=== PATIENT | female | born 1985 | race Caucasian/White ===

== ENCOUNTER 2018-01-04 11:55 | Emergency (ER) | payer MEDICAID, OTHER ==
[~2018-01-04] VITALS: Ht 172.7 cm; Wt 120.2 kg
[2018-01-04 12:02] VITALS: BP 161/95
--- NOTE | 2018-01-04 12:03 | NUR ---
pt ambulated to bed 11
--- NOTE | 2018-01-04 12:05 | NUR ---
32/F BIB BOYFRIEND C/O RIGHT FLANK PAIN X3 DAYS ACCOMPANIED BY BURNING WITH URINATION. DENIES N/V/D; SKIN IS PINK/WARM/DRY; AAOX4 WITH EVEN AND STEADY GAIT; LUNGS CLEAR BL;PATIENT STATES PAIN OF 7/10 AT THIS TIME; PATIENT POSITIONED FOR COMFORT; HOB ELEVATED; BEDRAILS UP X2; BED DOWN. ER MD MADE AWARE OF PT STATUS.
--- NOTE | 2018-01-04 12:08 | NUR ---
Patient being evaluated by DR GILLIS at bedside.
[2018-01-04] MEDS ORDERED: ACETAMINOPHEN 325 MG TAB PO ONE (12:15)
[2018-01-04] MEDS ORDERED: DIAZEPAM 5 MG TAB PO ONE (12:15)
--- NOTE | 2018-01-04 12:34 | NUR ---
LAB AT BEDSIDE.
[2018-01-04 12:53] LABS: BASOPHILS # (AUTO) 0.1 K/uL (0.00-0.22); BASOPHILS % (AUTO) 1.3 % (0.0-2.0); EOSINOPHILS # (AUTO) 0.3 K/uL (0-0.4); HEMATOCRIT 44.4 % (36-48); HEMOGLOBIN 15.1 g/dL (12.0-16.0); LYMPHOCYTES # (AUTO) 1.9 K/uL (2.5-16.5); LYMPHOCYTES % (AUTO) 18.1 % (20.5-51.1); MEAN CORPUSCULAR HEMOGLOBIN 30 pg (27-31); MEAN CORPUSCULAR HGB CONC 34 g/dL (33-37); MEAN CORPUSCULAR VOLUME 89 fL (80-94); MONOCYTES # (AUTO) 0.9 K/uL (0.8-1.0); MONOCYTES % (AUTO) 8.5 % (1.7-9.3); NEUTROPHILS # (AUTO) 7.6 K/uL (1.8-7.7); NEUTROPHILS % (AUTO) 69.1 % (42.2-75.2); PLATELET COUNT (AUTO) 357 K/uL (140-450); RED CELL DISTRIBUTION WIDTH 12.1 % (11.6-13.7); WHITE BLOOD COUNT (AUTO) 10.8 K/uL (4.8-10.8)
[2018-01-04 12:55] LABS: APPEARANCE,URINE SL CLOUDY (CLEAR); BILIRUBIN,URINE NEGATIVE (NEGATIVE); BLOOD, URINE 1+ (NEGATIVE); COLOR,URINE YELLOW (YELLOW); LEUKOCYTE ESTERASE ,URINE 2+ (NEGATIVE); NITRITE, URINE NEGATIVE (NEGATIVE); PH,URINE 6.5 (5.0-9.0); UGLUCOSE NEGATIVE (NEGATIVE)
[2018-01-04 13:09] LABS: ANION GAP 13.7 (8-16); CARBON DIOXIDE 25.4 mmol/L (21-32); CREATININE 0.8 mg/dL (0.6-1.3); POTASSIUM 4.1 mmol/L (3.5-5.1)
[2018-01-04 13:10] LABS: RBC,URINE 3-10 (FEW) /HPF (0-5)
[2018-01-04 13:12] LABS: URINE AMORPHOUS URATE 2+ /HPF (None Seen)
[2018-01-04 13:22] LABS: ALBUMIN 3.6 g/dL (3.4-5.0); TOTAL BILIRUBIN 0.6 mg/dL (0.0-1.0)
[2018-01-04] MEDS ORDERED: HYDROcodone/APAP 5/325 MG 1 TAB TAB PO ONE (13:55)
[2018-01-04 14:12] VITALS: BP 136/87
--- NOTE | 2018-01-04 14:12 | NUR ---
Patient discharged with BP 136/87 DENIES HEADACHE AT THIS TIME. Written and verbal after care instructions given and explained. Patient alert, oriented and verbalized understanding of instructions. Ambulatory with steady gait. All questions addressed prior to discharge. ID band removed. Patient advised to follow up with PMD. Rx of NAPROSYN,CIPRO & TYLENOL given. Patient educated on indication of medication including possible reaction and side effects. Opportunity to ask questions provided and answered.
== END 2018-01-04 14:12 | disposition home or self-care (01) ==
LOC: MED 11:55
DX: N39.0 Urinary tract infection, site not specified (principal); Z88.6 Allergy status to analgesic agent
CPT/HCPCS: 36415; 76705; 80053; 81001; 81025; 83690; 85025; 87086; 99285; Q0092

== ENCOUNTER 2018-03-21 21:45 | Emergency (ER) | payer MEDICAID, OTHER ==
[~2018-03-21] VITALS: Ht 170.2 cm; Wt 121.2 kg
[2018-03-21 21:50] VITALS: BP 150/111
--- NOTE | 2018-03-21 21:50 | NUR ---
PATIENT AMB TO TRIAGED AND SENT TO ER LOBBY.
--- NOTE | 2018-03-21 22:39 | NUR ---
PT AMBULATED TO ER BED 03
--- NOTE | 2018-03-21 22:39 | NUR ---
PATIENT PRESENTS TO ED WITH BILAT LOWER ABDOMINAL PAIN RADIATING TO LEFT LOWER BACK 8/10X1 DAY. PT STATES N/V; SKIN IS PINK/WARM/DRY; AAOX4 WITH EVEN AND STEADY GAIT; LUNGS CLEAR BL; HR EVEN AND REGULAR; PT DENIES ANY FEVER, CP, SOB, OR COUGH AT THIS TIME; PATIENT STATES PAIN OF 0/10 AT THIS TIME; VSS; PATIENT POSITIONED FOR COMFORT; HOB ELEVATED; BEDRAILS UP X2; BED DOWN. ER MD MADE AWARE OF PT STATUS.
[2018-03-21] MEDS ORDERED: MORPHINE SULFATE 4 MG/ML SYR IM ONE (23:20)
[2018-03-21] MEDS ORDERED: ONDANSETRON 4 MG ODT PO ONE (23:20)
[2018-03-22 00:05] VITALS: BP 150/111
--- NOTE | 2018-03-22 00:05 | NUR ---
Patient discharged with v/s stable. Written and verbal after care instructions given and explained. Patient alert, oriented and verbalized understanding of instructions. Ambulatory with steady gait. All questions addressed prior to discharge. ID band removed. Patient advised to follow up with PMD. Rx of ZOFRAN, CIPRO, NORCO given. Patient educated on indication of medication including possible reaction and side effects. Opportunity to ask questions provided and answered.
== END 2018-03-22 00:05 | disposition home or self-care (01) ==
LOC: MED 21:45
DX: N39.0 Urinary tract infection, site not specified (principal); R11.0 Nausea; R10.30 Lower abdominal pain, unspecified; Z88.6 Allergy status to analgesic agent
CPT/HCPCS: 81002; 81025; 96372; 99283; J2270; S0119

== ENCOUNTER 2018-08-24 07:57 | Emergency (ER) | payer OTHER ==
[~2018-08-24] VITALS: Ht 170.2 cm; Wt 125.4 kg
[2018-08-24 08:05] VITALS: BP 170/79
--- NOTE | 2018-08-24 08:27 | NUR ---
PATIENT PRESENTS TO ED WITH ACCOMPANIED BY , C/O INTERMITTENT CRAMPING WITH HEAVY VAG BLEEDING 6-10 [place]IT[place]/DAY SATURATED PER PT. DENIES DIZZINESS OR SOB AT THIS TIME---NOT ON BIRTHCONTROL DENIES N/V/D; SKIN IS PINK/WARM/DRY; AAOX4 WITH EVEN AND STEADY GAIT; LUNGS CLEAR BL; HR EVEN AND REGULAR; PT DENIES ANY FEVER, CP, SOB, OR COUGH AT THIS TIME; PATIENT STATES PAIN OF 4/10 AT THIS TIME; VSS; PATIENT POSITIONED FOR COMFORT; HOB ELEVATED; BEDRAILS UP X2; BED DOWN. ER MD MADE AWARE OF PT STATUS.
--- NOTE | 2018-08-24 08:31 | NUR ---
UNABLE TO VOID AT THIS TIME---PROVIDED WITH WATER
--- NOTE | 2018-08-24 09:00 | NUR ---
ULTRASOUND AT BEDSIDE
[2018-08-24 09:42] LABS: BASOPHILS # (AUTO) 0.1 K/uL (0.00-0.22); BASOPHILS % (AUTO) 0.9 % (0.0-2.0); EOSINOPHILS # (AUTO) 0.3 K/uL (0-0.4); EOSINOPHILS % (AUTO) 2.7 % (0.0-4.0); HEMATOCRIT 45.7 % (36-48); HEMOGLOBIN 15.6 g/dL (12.0-16.0); LYMPHOCYTES # (AUTO) 2.1 K/uL (2.5-16.5); LYMPHOCYTES % (AUTO) 20.8 % (20.5-51.1); MEAN CORPUSCULAR HEMOGLOBIN 31 pg (27-31); MEAN CORPUSCULAR HGB CONC 34 g/dL (33-37); MEAN CORPUSCULAR VOLUME 89.5 fL (80-94); MONOCYTES # (AUTO) 0.7 K/uL (0.8-1.0); NEUTROPHILS # (AUTO) 6.9 K/uL (1.8-7.7); NEUTROPHILS % (AUTO) 68.6 % (42.2-75.2); PLATELET COUNT (AUTO) 329 K/uL (140-450); RED BLOOD CELL COUNT(AUTO) 5.11 MIL/uL (4.20-5.40); WHITE BLOOD COUNT (AUTO) 10.1 K/uL (4.8-10.8)
[2018-08-24 09:56] LABS: BARBITURATE, URINE NEG. ng/ml (NEG <=200); BENZODIAZEPINE, URINE NEG. ng/mL (NEG <=200); CANNABINOID, URINE POS. ng/mL (NEG <=50); OPIATE, URINE NEG. ng/mL (NEG <=2000)
[2018-08-24 10:06] LABS: APPEARANCE,URINE BLOODY (CLEAR); COLOR,URINE RED (YELLOW)
[2018-08-24 10:07] LABS: BILIRUBIN,URINE NEGATIVE (NEGATIVE); BLOOD, URINE 3+ (NEGATIVE); LEUKOCYTE ESTERASE ,URINE SMALL (NEGATIVE); NITRITE, URINE NEGATIVE (NEGATIVE); UGLUCOSE NEGATIVE (NEGATIVE)
[2018-08-24 10:07] LABS: PROTHROMBIN TIME 9.3 secs (10.8-13.4)
[2018-08-24 10:10] LABS: RBC,URINE >100 /HPF (0-5)
[2018-08-24 10:11] LABS: WBC,URINE 0-5 (RARE) /HPF (0-5)
[2018-08-24 10:30] LABS: COCAINE, URINE NEG ng/mL (NEG <=300); PHENCYCLIDINE SCREEN,URINE NEG ng/mL (NEG <=25)
--- NOTE | 2018-08-24 11:05 | NUR ---
Patient discharged with v/s stable. Written and verbal after care instructions given and explained. Patient alert, oriented and verbalized understanding of instructions. Ambulatory with steady gait. All questions addressed prior to discharge. ID band removed. Patient advised to follow up with PMD. Rx of TORADOL given. Patient educated on indication of medication including possible reaction and side effects. Opportunity to ask questions provided and answered.
[2018-08-24 11:06] VITALS: BP 149/81
== END 2018-08-24 11:05 | disposition home or self-care (01) ==
LOC: MED 07:57
DX: N83.201 Unspecified ovarian cyst, right side (principal); K21.9 Gastro-esophageal reflux disease without esophagitis; Z88.6 Allergy status to analgesic agent
CPT/HCPCS: 36415; 76830; 80305; 81001; 81025; 84702; 85025; 85610; 85730; 87086; 99285; Q0092

== ENCOUNTER 2019-05-22 16:54 | Emergency (ER) | payer MEDICAID, OTHER ==
[~2019-05-22] VITALS: Ht 170.2 cm; Wt 108.9 kg
[2019-05-22 17:00] VITALS: BP 118/64
[2019-05-22] MEDS ORDERED: NACL 0.9% 1,000 ML IV ONE (17:05)
--- NOTE | 2019-05-22 17:08 | NUR ---
PT C/O R LOWER ABD PAIN RADIATES TO R FLANK X1 DAY, REPORTS VOMITING. DENIES N/D; SKIN IS PINK/WARM/DRY; AWAKE, ALERT. LUNGS CLEAR BL; HR EVEN AND REGULAR; PT DENIES ANY FEVER, CP, SOB, OR COUGH AT THIS TIME; PATIENT STATES PAIN OF 10/10 AT THIS TIME; VSS; PATIENT POSITIONED FOR COMFORT; HOB ELEVATED; BEDRAILS UP X2; BED DOWN. ER MD MADE AWARE OF PT STATUS.
[2019-05-22] MEDS ORDERED: MORPHINE SULFATE 4 MG/ML SYR IVP ONE (17:50)
[2019-05-22 18:00] LABS: BASOPHILS # (AUTO) 0.1 K/uL (0.00-0.22); EOSINOPHILS # (AUTO) 0.3 K/uL (0-0.4); EOSINOPHILS % (AUTO) 1.8 % (0.0-4.0); HEMATOCRIT 46.7 % (36-48); HEMOGLOBIN 15.7 g/dL (12.0-16.0); LYMPHOCYTES # (AUTO) 2.5 K/uL (2.5-16.5); MEAN CORPUSCULAR HEMOGLOBIN 30 pg (27-31); MEAN CORPUSCULAR HGB CONC 34 g/dL (33-37); MEAN CORPUSCULAR VOLUME 89.4 fL (80-94); MONOCYTES # (AUTO) 0.8 K/uL (0.8-1.0); MONOCYTES % (AUTO) 5.6 % (1.7-9.3); NEUTROPHILS # (AUTO) 10.4 K/uL (1.8-7.7); NEUTROPHILS % (AUTO) 73.6 % (42.2-75.2); PLATELET COUNT (AUTO) 370 K/uL (140-450); RED BLOOD CELL COUNT(AUTO) 5.23 MIL/uL (4.20-5.40); WHITE BLOOD COUNT (AUTO) 14.2 K/uL (4.8-10.8)
[2019-05-22 18:13] LABS: ANION GAP 17.8 (8-16); CARBON DIOXIDE 23.8 mmol/L (21-32); POTASSIUM 3.6 mmol/L (3.5-5.1)
[2019-05-22 18:18] LABS: ALBUMIN 4.4 g/dL (3.4-5.0); TOTAL BILIRUBIN 0.5 mg/dL (0.0-1.0)
--- NOTE | 2019-05-22 18:30 | NUR ---
PT STATED PAIN RELIEVED.
--- NOTE | 2019-05-22 19:19 | NUR ---
RECEIVED REPORT FROM BARRETT OCHOA. TRANSFER OF CARE AT THIS TIME.
--- NOTE | 2019-05-22 19:28 | NUR ---
PT AWAKE, ALERT, ASKING TO USE RESTROOM. PT AMBULATES TO RR WITHOUT DIFFICULTY. DENIES PAIN AT THIS TIME.
[2019-05-22 20:37] LABS: APPEARANCE,URINE CLEAR (CLEAR); BILIRUBIN,URINE NEGATIVE (NEGATIVE); BLOOD, URINE 3+ (NEGATIVE); COLOR,URINE YELLOW (YELLOW); LEUKOCYTE ESTERASE ,URINE NEGATIVE (NEGATIVE); NITRITE, URINE NEGATIVE (NEGATIVE); UGLUCOSE NEGATIVE (NEGATIVE)
[2019-05-22 20:46] LABS: RBC,URINE 11-20 (MOD) /HPF (0-5); WBC,URINE 0-5 /HPF (0-5)
--- NOTE | 2019-05-22 20:47 | NUR ---
SECOND URINE SPECIMEN COLLECTED. WALKED TO LAB BY EMT.
--- NOTE | 2019-05-22 21:30 | NUR ---
PT NOTED TO BE RETCHING AND VOMITING AND C/O RETURN OF ABD PAIN. DR. POON NOTIFIED. NEW ORDERS RECEIVED.
[2019-05-22] MEDS ORDERED: diphenhydrAMINE 50 MG/ML VIAL IVP ONE (21:35)
[2019-05-22] MEDS ORDERED: PROMETHAZINE 25 MG/ML VIAL IVP ONE (21:35)
[2019-05-22] MEDS ORDERED: cefTRIAXone 1,000 MG VIAL ONE (22:17)
[2019-05-22 22:49] VITALS: BP 145/87
--- NOTE | 2019-05-22 22:49 | NUR ---
Patient discharged with v/s stable. Written and verbal after care instructions given and explained. Patient alert, oriented and verbalized understanding of instructions. Ambulatory with steady gait. All questions addressed prior to discharge. ID band removed. Patient advised to follow up with PMD. Rx of Naprosyn, Bactrim, and Claridge given. Patient educated on indication of medication including possible reaction and side effects. Opportunity to ask questions provided and answered.
== END 2019-05-22 22:49 | disposition home or self-care (01) ==
LOC: MED 16:54
DX: N83.209 Unspecified ovarian cyst, unspecified side (principal); N30.90 Cystitis, unspecified without hematuria; K21.9 Gastro-esophageal reflux disease without esophagitis; F12.10 Cannabis abuse, uncomplicated; Z88.8 Allergy status to other drugs, medicaments and biological substances
CPT/HCPCS: 36415; 76830; 80053; 81001; 81025; 83605; 83690; 85025; 87040; 87086; 96365; 96375; 99284; J0696; J1200; J2270; J2550; J7030; J7060; Q0092